=== PATIENT | male | born 1960 | race African-American/Black ===

== ENCOUNTER 2017-06-12 20:16 | Emergency (ER) | payer SELFPAY ==
[2017-06-12 20:38] LABS: ADD MAN DIFF? NO
[2017-06-12 20:42] LABS: BASO # 0.1 x10^3/uL (0.0-0.2); BASO % 1 % (0-3); EOS # 0.1 x10^3/uL (0.0-0.7); EOS % 2 % (0-3); HEMOGLOBIN 13.2 g/dL (13.0-17.5); LYMPH # 3.4 x10^3/uL (1.0-4.8); LYMPH % 44 % (24-48); MEAN CORPUSCULAR HEMOGLOBIN 35 pg (25-35); MEAN CORPUSCULAR HGB CONC 35 g/dL (31-37); MEAN CORPUSCULAR VOLUME 100 fL (79-100); MONO # 0.8 x10^3/uL (0.0-1.1); MONO % 11 % (0-9); NEUT # 3.3 x10^3uL (1.8-7.7); NEUT % 43 % (31-73); PLATELET COUNT 186 x10^3/uL (140-400); RED BLOOD COUNT 3.78 x10^6/uL (4.30-5.70); RED CELL DISTRIBUTION WIDTH 13.5 % (11.5-14.5); WHITE BLOOD COUNT 7.7 x10^3/uL (4.0-11.0)
[2017-06-12 20:49] LABS: ANION GAP 10 (6-14); BLOOD UREA NITROGEN 7 mg/dL (8-26); BUN/CREATININE RATIO 10 (6-20); CALCIUM 9.1 mg/dL (8.5-10.1); CARBON DIOXIDE 28 mmol/L (21-32); CHLORIDE 106 mmol/L (98-107); CREATININE 0.7 mg/dL (0.7-1.3); GFR 142.2; GLUCOSE 131 mg/dL (70-99); POTASSIUM 3.8 mmol/L (3.5-5.1); SODIUM 144 mmol/L (136-145)
[2017-06-12 20:54] LABS: ALBUMIN 3.3 g/dL (3.4-5.0); ALBUMIN/GLOBULIN RATIO 0.7 (1.0-1.7); ALK PHOS 75 U/L (46-116); ALT (SGPT) 153 U/L (16-63); AST (SGOT) 338 U/L (15-37); TOTAL BILIRUBIN 0.5 mg/dL (0.2-1.0); TOTAL PROTEIN 8.2 g/dL (6.4-8.2)
[2017-06-12 20:57] LABS: ETHANOL 361 mg/dL (0-10)
[2017-06-12 21:01] LABS: POC GLUCOSE 110 mg/dL (70-99)
== END 2017-06-13 01:40 | disposition home or self-care (01) ==
LOC: ER 06-13 01:40
DX: F10.120 Alcohol abuse with intoxication, uncomplicated (principal); J45.909 Unspecified asthma, uncomplicated; E11.9 Type 2 diabetes mellitus without complications
CPT/HCPCS: 36415; 70450; 72125; 80053; 82962; 85025; 99285; G0480

== ENCOUNTER 2019-07-08 10:05 | Emergency (ER) | payer SELFPAY ==
[~2019-07-08] VITALS: Ht 190.5 cm; Wt 95.4 kg
[~2019-07-08 10:05] MED LIST: ALBU2.5V8 IH
[2019-07-08 10:25] VITALS: BP 158/86
--- NOTE | 2019-07-08 10:45 | PHYS DOC ---
Past Medical History Past Medical History: Asthma, Diabetes-Type II Past Surgical History: Other Additional Past Surgical Histo: RIGHT ARM Smoking Status: Current Every Day Smoker Alcohol Use: Heavy Drug Use: None General Adult EDM: Chief Complaint: EYE PROBLEMS HPI: HPI: Patient is a 58 year old male presenting to the ED with a chief complaint of redness and discharge from his right eye. Patient states that he was mowing his lawn few days ago and thinks that he may have got some dirt in his right eye. Patient states that he has had discharge for the last 2 days and wants this taken care of before it gets worse. Patient denies fever, chills, nausea, vomiting, chest pain, shortness of breath. Review of Systems: Review of Systems: Patient denies fever, chills, nausea, vomiting, chest pain, shortness of breath. Patient does complain of redness and discharge from his right eye. Patient denies visual changes in his right eye. Heart Score: Risk Factors: Risk Factors: DM, Current or recent (<one month) smoker, HTN, HLP, family history of CAD, obesity. Risk Scores: Score 0 - 3: 2.5% MACE over next 6 weeks - Discharge Home Score 4 - 6: 20.3% MACE over next 6 weeks - Admit for Clinical Observation Score 7 - 10: 72.7% MACE over next 6 weeks - Early Invasive Strategies Allergies: Allergies: Allergies Coded Allergies Type Severity Reaction Last Updated Verified No Known Drug Allergies 05/09/15 No Physical Exam: PE: Constitutional: Well developed, well nourished, no acute distress, non-toxic appearance. [] HENT: Normocephalic, atraumatic Eyes: EOMI, injection and discharge from the right eye Neck: Normal range of motion, Supple Respiratory: No respiratory distress Extremities: No tenderness, ROM intact Neurologic: Alert and oriented X 3 Current Patient Data: Vital Signs: Vital Signs Date Time Temp Pulse Resp B/P (MAP) Pulse Ox O2 Delivery O2 Flow Rate FiO2 07/08/19 10:25 98.9 75 16 158/86 (110) 99 Room Air 98.9 EKG: EKG: [] Radiology/Procedures: Radiology/Procedures: [] Course & Med Decision Making: Course & Med Decision Making Patient was treated with erythromycin ophthalmic Discussed plan of care with patient. Patient is instructed to follow up with PCP in one to 2 days. Appropriate discharge instructions given to patient to return to the ED or to seek immediate medical evaluation. Patient is instructed to return to the ED if symptoms worsen or if any concerns. Amrit Disclaimer: Amrit Disclaimer: This electronic medical record was generated, in whole or in part, using a voice recognition dictation system. Departure Departure Impression: Primary Impression: Conjunctivitis Disposition: HOME, SELF-CARE Condition: STABLE Referrals: NO PCP (PCP) Patient Instructions: Bacterial Conjunctivitis Additional Instructions: Please return to the ED if symptoms worsen or if any concerns. Please follow-up with PCP in 1 to 2 days. Scripts Erythromycin Base (Erythromycin) 1 Gm Oint...g. 0.5 INCH OP Q4-6HRS for 7 Days, [facility] [place] Prov: BRETT BARAKAT DO 07/08/19 BRETT BARAKAT DO July 08, 2019 10:45
[2019-07-08] MEDS ORDERED: ERYT1OIN6 OP (10:48)
== END 2019-07-08 10:53 | disposition home or self-care (01) ==
LOC: ER 10:05
DX: H10.9 Unspecified conjunctivitis (principal); E11.9 Type 2 diabetes mellitus without complications; J45.909 Unspecified asthma, uncomplicated; F17.200 Nicotine dependence, unspecified, uncomplicated; F10.20 Alcohol dependence, uncomplicated; Y90.9 Presence of alcohol in blood, level not specified
CPT/HCPCS: 99283

== ENCOUNTER 2019-07-15 01:48 | Emergency (ER) | payer SELFPAY ==
[~2019-07-15] VITALS: Ht 177.8 cm; Wt 80.0 kg
[~2019-07-15 01:48] MED LIST changes: +ERYT1OIN6 OP
[2019-07-15] MEDS ORDERED: TOBR5DRO6 EACHEYE (02:37)
--- NOTE | 2019-07-15 02:37 | PHYS DOC ---
Past Medical History Past Medical History: Asthma, Diabetes-Type II Past Surgical History: Other Additional Past Surgical Histo: RIGHT ARM Smoking Status: Current Every Day Smoker Alcohol Use: Heavy Drug Use: None General Adult EDM: Chief Complaint: EYE PROBLEMS HPI: HPI: Patient is a 58 year old male presenting to the ED with a chief complaint of bilateral eye injection, discharge and crusting. Patient was seen recently in the ER and was diagnosed with conjunctivitis and discharged home on erythromycin ointment. Patient states that he has been using the ointment but now it has spread to both eyes. Patient denies fever, chills, nausea or vomiting. Review of Systems: Review of Systems: Constitutional: Denies fever or chills. [] Eyes: Denies change in visual acuity. Complains of redness, crusting and erythema in both eyes [] HENT: Denies nasal congestion or sore throat. [] Respiratory: Denies cough or shortness of breath. [] Cardiovascular: Denies chest pain or edema. [] GI: Denies abdominal pain, nausea, vomiting, bloody stools or diarrhea. [] Neurologic: Denies headache, focal weakness or sensory changes. [] Heart Score: Risk Factors: Risk Factors: DM, Current or recent (<one month) smoker, HTN, HLP, family history of CAD, obesity. Risk Scores: Score 0 - 3: 2.5% MACE over next 6 weeks - Discharge Home Score 4 - 6: 20.3% MACE over next 6 weeks - Admit for Clinical Observation Score 7 - 10: 72.7% MACE over next 6 weeks - Early Invasive Strategies Allergies: Allergies: Allergies Coded Allergies Type Severity Reaction Last Updated Verified No Known Drug Allergies 05/09/15 No Physical Exam: PE: Constitutional: Well developed, well nourished, no acute distress, non-toxic appearance. [] HENT: Normocephalic, atraumatic Eyes: EOMI, injection and crusting in both eyes Neck: Normal range of motion, Supple Respiratory: No respiratory distress Extremities: No tenderness, ROM intact Neurologic: Alert and oriented X 3 EKG: EKG: [] Radiology/Procedures: Radiology/Procedures: [] Course & Med Decision Making: Course & Med Decision Making Patient will be prescribed a different antibiotic ointment. Patient to follow-up with ophthalmology in 1 to 2 days. Patient brought his erythromycin ointment tubing. After 1 week there is still a lot of ointment left. I am not sure if patient has been dosing the correct amount of antibiotics. Discussed results and plan of care with patient. Patient is instructed to follow up with PCP in one to 2 days. Appropriate discharge instructions given to patient to return to the ED or to seek immediate medical evaluation. Patient is instructed to return to the ED if symptoms worsen or if any concerns. Dragon Disclaimer: Dragon Disclaimer: This electronic medical record was generated, in whole or in part, using a voice recognition dictation system. Departure Departure Impression: Primary Impression: Conjunctivitis Disposition: HOME, SELF-CARE Condition: STABLE Referrals: NO PCP (PCP) Patient Instructions: Conjunctivitis (Viral and Bacterial) Additional Instructions: Please return to the ED if symptoms worsen or if any concerns. Please follow-up with PCP in 1 to 2 days. Scripts Tobramycin (TOBRAMYCIN) 5 Ml Drops 2 DROP EACHEYE QID for 7 Days, #5 ML 0 Refills Prov: BRETT BARAKAT DO 07/15/19 Justicifation of Admission Dx: Justifications for Admission: Justification of Admission Dx: No BRETT BARAKAT DO Jul 15, 2019 02:37
[2019-07-15 02:58] VITALS: BP 133/92
== END 2019-07-15 03:00 | disposition home or self-care (01) ==
LOC: ER 01:48
DX: H10.89 Other conjunctivitis (principal); L53.9 Erythematous condition, unspecified; R23.4 Changes in skin texture; J45.909 Unspecified asthma, uncomplicated; E11.9 Type 2 diabetes mellitus without complications; F17.200 Nicotine dependence, unspecified, uncomplicated; F10.10 Alcohol abuse, uncomplicated; Z98.890 Other specified postprocedural states
CPT/HCPCS: 99283

== ENCOUNTER 2021-03-31 14:37 | Emergency (ER) | payer MEDICARE ==
[~2021-03-31] VITALS: Ht 190.5 cm; Wt 95.5 kg
[~2021-03-31 14:37] MED LIST changes: +ALLO300T PO; +HYDR-2759 PO; +IBUP200C9 PO; +TOBR5DRO6 EACHEYE
[2021-03-31 14:56] VITALS: BP 158/89
[2021-03-31] MEDS ORDERED: AMOX1TAB11 PO (15:35)
[2021-03-31] MEDS ORDERED: TRAM50TA PO (15:35)
[2021-03-31] MEDS ORDERED: CHLO15MO2 PO (15:38)
--- NOTE | 2021-03-31 15:38 | PHYS DOC ---
Past Medical History Past Medical History: Other (CARLI SANTO) Past Surgical History: No Surgical History (CARLI SANTO) Smoking Status: Current Every Day Smoker Alcohol Use: Heavy Drug Use: None (CARLI SANTO) General Adult EDM: Chief Complaint: MECHANICAL FALL HPI: HPI: Patient is a 60 year old male who presents with dental pain status post mechanical fall. Patient reports intermittent left-sided dental pain for over 1 year. 2 days ago, he states he tripped on a curb and hit the left side of his face on concrete. Patient states that he bit the inside of his cheek at that time. He has had increased pain and swelling since his fall. Patient denies headache, neck pain, loss of consciousness, headache, nausea/vomiting. (CARLI SANTO) Review of Systems: Review of Systems: ROS negative or noncontributory except as mentioned in HPI. (CARLI SANTO) Heart Score: C/O Chest Pain: No (CARLI SANTO) Allergies: Allergies: Allergies Coded Allergies Type Severity Reaction Last Updated Verified No Known Drug Allergies 05/09/15 No (CARLI SANTO) Physical Exam: PE: Constitutional: Well developed, well nourished, no acute distress, non-toxic appearance. HENT: Left lower jaw swollen and indurated without any area of fluctuance, bilateral external ears normal, patient has poor dentition, visible wound consistent with biting inner cheek with surrounding erythema and swelling, no pu rulent drainage appreciated, nose normal. Eyes: EOMI, conjunctiva normal, no discharge. Neck: Normal range of motion, no tenderness, supple, no stridor. Skin: Warm, dry, no erythema, no rash. Extremities: No tenderness, no cyanosis, no clubbing, ROM intact, no edema. Neurologic: Alert and oriented x4, steady and symmetrical upright gait, no focal deficits noted. (CARLI SANTO) Current Patient Data: Vital Signs: Vital Signs Date Time Temp Pulse Resp B/P (MAP) Pulse Ox O2 Delivery O2 Flow Rate FiO2 03/31/21 14:56 98.0 90 20 158/89 (112) 100 Room Air 98.0 (CARLI SANTO) Course & Med Decision Making: Course & Med Decision Making Pertinent Labs and Imaging studies reviewed. (See chart for details) (CARLI SANTO) Amrit Disclaimer: Dragjohanna Disclaimer: This electronic medical record was generated, in whole or in part, using a voice recognition dictation system. (CARLI SANTO) Departure Departure Impression: Primary Impression: Infected dental caries Additional Impressions: Facial contusion Qualified Codes: S00.83XA - Contusion of other part of head, initial encounter Other superficial bite of oral cavity, initial encounter Disposition: HOME / SELF CARE / HOMELESS Condition: STABLE Referrals: NO PCP (PCP) Patient Instructions: Dental Caries, Facial or Scalp Contusion, [id number], Mouth Laceration, [id number] Additional Instructions: EMERGENCY DEPARTMENT GENERAL DISCHARGE INSTRUCTIONS Thank you for coming to [facility] Emergency Department (ED) today and trusting us with you care. We trust that you had a positive experience in our Emergency Department. If you wish to speak to the department management, you may call the director at . YOUR FOLLOW UP INSTRUCTIONS ARE FOLLOWS: 1. Follow up with your primary care doctor. If you do not have a primary doctor, please ask for a resource list of physicians or clinics that may be able to assist you with follow up care. 2. The emergency provider has interpreted your imaging studies, if any were ordered. The radiology finish specialist also reviewed them. If there is a change in the findings, you will be notified in 48 hours when at all possible. 3. If a lab test or culture has been done, your results will be reviewed and you will be notified if you need a change in treatment. 4. Follow instructions verbalized to you and refer to the printouts if needed. ADDITIONAL INSTRUCTIONS AND INFORMATION: 1. Your care today has been supervised by a physician who is specially trained in emergency care. Many problems require more than one evaluation for a complete diagnosis and treatment. We recommend that you schedule your follow up appointment as recommended to ensure complete treatment of you illness or injury. If you are unable to obtain follow up care and continue to have a problem, or if your condition worsens, we recommend that you return to the ED. 2. We are not able to safely determine your condition over the phone nor are we able to give sound medical advice over the phone. For these safety reasons, if you call for medical advice we will ask you to come to the ED for further evaluation. 3. If you have any questions regarding these discharge instructions please call the ED at . SAFETY INFORMATION: In the interest of safety, wellness, and injury prevention; we encourage you to wear your seat belt, if you smoke; quite smoking, and we encourage family to use a protective helmet for bicycling and other sporting events that present an increased risk for head injury. IF YOUR SYMPTOMS WORSEN OR NEW SYMPTOMS DEVELOP, OR YOU HAVE CONCERNS ABOUT YOUR CONDITION; OR IF YOUR CONDITION WORSENS WHILE YOU ARE WAITING FOR YOUR FOLLOW UP APPOINTMENT; EITHER CONTACT YOUR PRIMARY CARE DOCTOR, THE PHYSICIAN WHOSE NAME AND NUMBER YOU WERE GIVEN, OR RETURN TO THE ED IMMEDIATELY. Scripts Chlorhexidine Gluconate (PERIDEX) 15 Ml Mouthwash 15-30 ML PO TID for 8 Days, #473 ML 0 Refills Prov: CARLI SANTO 03/31/21 Tramadol Hcl (TRAMADOL HCL) 50 Mg Tablet 50 MG PO PRN Q6HRS PRN for PAIN, #12 TAB 0 Refills Prov: CARLI SANTO 03/31/21 Amoxicillin/Potassium Clav (AMOX TR-K CLV 875-125 MG TAB) 1 Each Tablet 1 TAB PO BID, #20 TAB Prov: CARLI SANTO 03/31/21 Attending Signature Attending Signature I have reviewed the PA/TIN CONTAINER STRAIGHTENER's note and plan of care. I was available for consultation as needed during the patient's visit in the emergency department. I agree with the clinical impression, plan, and disposition. (JODI BARON DO) CARLI SANTO Mar 31, 2021 15:38 JODI BARON DO Apr 01, 2021 09:03
[2021-03-31] MEDS ORDERED: traMADol 50 MG TABLET PO ONE (15:45)
== END 2021-03-31 15:48 | disposition home or self-care (01) ==
LOC: ER 14:37
DX: S00.83XA Contusion of other part of head, initial encounter (principal); K04.7 Periapical abscess without sinus; F17.200 Nicotine dependence, unspecified, uncomplicated; W01.198A Fall on same level from slipping, tripping and stumbling with subsequent striking against other object, initial encounter; Y93.89 Activity, other specified; Y92.89 Other specified places as the place of occurrence of the external cause; Y99.8 Other external cause status
CPT/HCPCS: 99283

== ENCOUNTER 2021-04-03 16:18 | Emergency (ER) | payer MEDICARE ==
[~2021-04-03] VITALS: Ht 190.5 cm; Wt 95.5 kg
[~2021-04-03 16:18] MED LIST changes: +AMOX1TAB11 PO; +CHLO15MO2 PO; +TRAM50TA PO
--- NOTE | 2021-04-03 16:39 | PHYS DOC ---
Past Medical History Past Medical History: Other Past Surgical History: No Surgical History Smoking Status: Current Every Day Smoker Alcohol Use: Heavy Drug Use: None General Adult EDM: Chief Complaint: ABSCESS HPI: HPI: Patient is a 60-year-old male who presents to the emergency department reporting swelling to the left lower jaw. Patient reports he felt this past Tuesday hitting his left lower jaw on the concrete, denied loss of consciousness, reports it started swelling over the past few days and he was seen here this past Tuesday, evaluated and sent home with Peridex mouthwash, amoxicillin regimen, Toradol for pain. Patient reports he did cut the inside of his mouth with his teeth, states it started draining today, denies swelling getting worse, denies a swelling getting any better. Patient states he thinks he needs his face drained. Patient denies sore throat, swelling of the throat, numbness to the face or mouth or tongue, denies loose teeth, denies head or neck pain. Patient reports his last tetanus immunization was less than 5 years ago. Patient denies other physical complaints or physical concerns. Review of Systems: Review of Systems: 14 body systems of review of systems have been reviewed. See HPI for pertinent positives and negative responses, otherwise all other systems are negative, nonpertinent or noncontributory. Constitutional: Negative except as outlined in HPI above. Skin: Negative except as outlined in HPI above. Eyes: Negative except as outlined in HPI above. HENT: Negative except as outlined in HPI above. Respiratory: Negative except as outlined in HPI above. Cardiovascular: Negative except as outlined in HPI above. GI: Negative except as outlined in HPI above. : Negative except as outlined in HPI above. Musculoskeletal: Negative except as outlined in HPI above. Integument: Negative except as outlined in HPI above. Neurologic: Negative except as outlined in HPI above. Endocrine: Negative except as outlined in HPI above. Lymphatic: Negative except as outlined in HPI above. Psychiatric: Negative except as outlined in HPI above. Heart Score: C/O Chest Pain: No Risk Factors: Risk Factors: DM, Current or recent (<one month) smoker, HTN, HLP, family history of CAD, obesity. Risk Scores: Score 0 - 3: 2.5% MACE over next 6 weeks - Discharge Home Score 4 - 6: 20.3% MACE over next 6 weeks - Admit for Clinical Observation Score 7 - 10: 72.7% MACE over next 6 weeks - Early Invasive Strategies Allergies: Allergies: Allergies Coded Allergies Type Severity Reaction Last Updated Verified No Known Drug Allergies 05/09/15 No Physical Exam: PE: Constitutional: Well developed, well nourished, no acute distress, non-toxic appearance. 60-year-old male is spitting into emesis bag otherwise in no apparent distress. HENT: Normocephalic, atraumatic. There is swelling to the left lower jaw, skin is intact, there is a laceration to the oral mucosa along lower dental line, there are no loose teeth, scant serosanguineous drainage from oral laceration, there is no raccoon eyes, no anne's sign, bilateral TMs are intact and within normal limits, there is no malocclusion, no trismus appreciated, patient is maintaining secretions well, is spitting into emesis basin stating he does not like that taste of the bloody saliva. There is a 3 cm diameter hematoma to the outside skin structures of the lower jaw of the left, no other abnormalities are appreciated. Nasal turbinates are patent without drainage. Patient is speaking in normal voice tones. Eyes: Conjunctiva normal, no discharge. Neck: Normal range of motion, no stridor. No C-spine pain. No nuchal rigidity, no meningismus signs. Cardiovascular: No cyanosis appreciated, distal cap refill less than 2 seconds. Lungs & Thorax: Patient is in no respiratory distress, lung sounds are clear to auscultation all lung reyes. Abdomen: Nontender, no abnormalities noted. Skin: Warm, dry, no erythema, no rash. Back: No tenderness, no deformities. Extremities: No tenderness, no cyanosis, no clubbing, ROM intact, no edema. Neurologic: Alert and oriented X 3, normal motor function, normal sensory function, no focal deficits noted. Psychologic: Affect normal, judgement normal, mood normal. Current Patient Data: Vital Signs: Vital Signs Date Time Temp Pulse Resp B/P (MAP) Pulse Ox O2 Delivery O2 Flow Rate FiO2 04/03/21 16:26 98.3 85 18 146/95 (112) 99 Room Air 98.3 EKG: EKG: [] Radiology/Procedures: Radiology/Procedures: STATUS: REG ER ORD. PHYSICIAN: JODI CALHOUN APRN REASON: Blood in stool, left lower quadrant pain PROCEDURE: CT ABD PELV W/ IV CONTRST ONLY Exam: CT abdomen/pelvis with intravenous contrast Indication: Left lower quadrant pain, blood in stools Comparison: None Technique: Helical CT imaging performed of the abdomen and pelvis after the intravenous administration of 75 mg Omnipaque 300 contrast. Sagittal and coronal reformats were obtained. One or more of the following individualized dose reduction techniques were utilized for this examination: 1. Automated exposure control 2. Adjustment of the mA and/or kV according to patient size 3. Use of iterative reconstruction technique. Findings: Lower chest: Mild atelectasis in the lung bases. Heart is normal in size. Liver: Normal. Gallbladder/Biliary Tree: Normal. Pancreas: Normal. Spleen: Normal Adrenal Glands: Normal. Kidneys/Ureters/Bladder: Normal. Reproductive Organs: Normal. Stomach, small bowel, and colon: There is mild wall thickening of the descending and sigmoid colon with mild pericolonic fat stranding. Trace free fluid in the left lower quadrant. No fluid collection, pneumoperitoneum, or pneumatosis. The rest of the colon, appendix, small bowel, and stomach are normal in appearance. Vasculature: Abdominal aorta is normal in caliber. Minimal calcifications in the right common iliac artery. Lymph Nodes: No lymphadenopathy. Peritoneum and retroperitoneum: Trace fluid in the left lower quadrant. No free air. Bones: No acute osseous abnormalities. There is mild degenerative joint disease of the right hip with small subchondral cysts and calcifications along the right acetabulum. Miscellaneous: None IMPRESSION: Colitis of the descending and sigmoid colon. Electronically signed by: Amira Aceves MD (04/03/2021 5:35 PM) [id number] Course & Med Decision Making: Course & Med Decision Making Pertinent Labs and Imaging studies reviewed. (See chart for details) 60-year-old male, vital signs reviewed, presents to the emergency department concerning left lower jaw swelling. Physical examination concerning for hematoma to left lower jaw status post falling and striking face on concrete this past Tuesday. Discussed patient case with ED attending physician Dr. Patel who examined patient at bedside, recommended CT maxillofacial with IV contrast. Patient is amenable to ED planning. Will order IV saline lock, CBC, CMP, CT maxillofacial with IV contrast. Patient's CBC unremarkable, CMP concerning for elevated transaminases, CT maxillofacial with IV contrast concerning for periapical abscess of the left inferior molar that is consistent with surrounding mandibular osteomyelitis. There is also a 3.7 x 1.7 soft tissue abscess. Patient started on vancomycin weightbase, IV Zosyn, serum labs ESR, CRP, blood c ultures x2, lactic acid ordered. Called transfer line to discuss case with maxillofacial surgeon. Transfer line requested images to be placed on cloud, called radiology to have CT imaging unclamp for [facility] transfer line, transfer line specialist reports will call back after backslash facial surgeon review. At 2104, transfer center returned call reporting oral maxillofacial surgeon specialist Dr. Acharya and trauma financial specialist Dr. Byers are unable to accept patient in transfer stating they do not have dental surgery backup. Recommended transferring patient to [facility] in [facility]. At 2114, spoke with [facility] DSO who states oral maxillofacial surgery patients are transported to the ER first for evaluation of OMFS specialist prior to admission to the hospital. Contacted Dr. Sha Preston at [facility] emergency department to review case and ED work-up, Dr. Preston has accepted patient in transfer. Discussed with patient transfer to [facility] for definitive management of his dental/facial infection, patient is amenable to ED transfer planning. EMTALA transfer forms reviewed and signed, patient awaiting underground production foreperson transport to [facility]. Amrit Disclaimer: Amrit Disclaimer: This electronic medical record was generated, in whole or in part, using a voice recognition dictation system. Departure Departure Impression: Primary Impression: Acute osteomyelitis of mandible Additional Impressions: Periapical abscess Abscess of soft tissue of mouth Disposition: 02 SHORT TERM [facility]OSPITAL (Patient transferred to [facility], accepting physician Dr. Sha Preston) Condition: STABLE Referrals: NO PCP (PCP) JODI CALHOUN APRN Apr 03, 2021 16:38
[2021-04-03 17:51] LABS: BASO # 0.1 x10^3/uL (0.0-0.2); BASO % 1 % (0-3); EOS % 1 % (0-3); HEMATOCRIT 34.7 % (39.0-53.0); HEMOGLOBIN 11.8 g/dL (13.0-17.5); LYMPH # 1.2 x10^3/uL (1.0-4.8); LYMPH % 17 % (24-48); MEAN CORPUSCULAR HEMOGLOBIN 36 pg (25-35); MEAN CORPUSCULAR HGB CONC 34 g/dL (31-37); MEAN CORPUSCULAR VOLUME 107 fL (79-100); MONO # 0.9 x10^3/uL (0.0-1.1); MONO % 13 % (0-9); NEUT # 4.8 x10^3/uL (1.8-7.7); NEUT % 68 % (31-73); PLATELET COUNT 137 x10^3/uL (140-400); RED BLOOD COUNT 3.25 x10^6/uL (4.30-5.70); RED CELL DISTRIBUTION WIDTH 13.7 % (11.5-14.5)
[2021-04-03 18:10] LABS: CALCIUM 8.3 mg/dL (8.5-10.1); CREATININE 0.7 mg/dL (0.7-1.3); GFR 140.2
[2021-04-03 18:18] LABS: ALBUMIN 2.6 g/dL (3.4-5.0); ALBUMIN/GLOBULIN RATIO 0.5 (1.0-1.7); TOTAL BILIRUBIN 2.5 mg/dL (0.2-1.0); TOTAL PROTEIN 8.1 g/dL (6.4-8.2)
[2021-04-03] MEDS ORDERED: IOHEXOL 300 MG/ML 100ML VIAL. IV ONE (19:00)
--- NOTE | 2021-04-03 19:32 | RAD ---
EXAM: CT facial bones with contrast. HISTORY: Fall, left jaw swelling and pain. TECHNIQUE: CT of the facial bones was performed after the intravenous administration of iodinated con trast. One or more of the following individualized dose reduction techniques were utilized for this e xamination: 1. Automated exposure control. 2. Adjustment of the mA and/or kV according to patient size. 3. Use of iterative reconstruction technique. COMPARISON: None. FINDINGS: A periapical abscess at the root of the most posterior left inferior molar breaches the lat eral cortex of the mandible. Sclerosis of the surrounding mandible is consistent with osteomyelitis. There is an overlying soft tissue fluid collection containing a small amount of gas, consistent with an abscess. The fluid collection measures 3.7 x 1.7 cm transaxially. There is no collection along the buccal soft tissues. Prominent submental and submandibular lymph nodes are likely reactive in this s etting. The orbits are unremarkable. The paranasal sinuses are clear. There are no facial fractures. Limited images of the brain reveal no abnormality. IMPRESSION: 1. Periapical abscess at the most posterior left inferior molar. Therefore is consistent with surroun ding mandibular osteomyelitis. The periapical collection breaches the lateral cortex of the mandible extends into the soft tissues of the left cheek, where there is a 3.7 x 1.7 cm soft tissue abscess. Electronically signed by: Emerald Holden MD (04/03/2021 7:30 PM) [facility]
[2021-04-03] MEDS ORDERED: PIPERACILLIN/TAZOBACTAM 3.375 GM in IV NORMAL SALINE 50ML 50 ML IV ONE (21:00)
[2021-04-03] MEDS ORDERED: CONTRAST GIVEN. MC PRN (21:00)
[2021-04-03] MEDS ORDERED: VANCOMYCIN 1.5 GM in IV NORMAL SALINE 500ML BAG 500 ML IV ONE (21:00)
[2021-04-03] MEDS ORDERED: fentaNYL PF VIAL 100 MCG/2 ML VIAL IVP ONE (21:30)
[2021-04-03 23:35] VITALS: BP 131/72
== END 2021-04-03 23:43 | disposition short-term general hospital (02) ==
LOC: ER 16:18
DX: M27.2 Inflammatory conditions of jaws (principal); K04.7 Periapical abscess without sinus; K12.2 Cellulitis and abscess of mouth; F17.200 Nicotine dependence, unspecified, uncomplicated; F10.20 Alcohol dependence, uncomplicated; Y90.0 Blood alcohol level of less than 20 mg/100 ml
CPT/HCPCS: 36415; 70487; 80053; 83605; 85025; 85651; 86140; 87040; 96365; 96366; 96368; 96375; 99285; G0480; J2543; J3010; J3370; J7040; Q9967